=== PATIENT | female | born 1960 | race African-American/Black ===

== ENCOUNTER 2018-06-26 02:50 | Emergency (ER) | payer SELFPAY ==
[~2018-06-26] VITALS: Ht 167.6 cm; Wt 93.2 kg
[2018-06-26] MEDS ORDERED: ACETAMINOPHEN 325MG TABLET PO STA (03:30)
[2018-06-26 03:49] LABS: CLARITY URINE CLOUDY (CLEAR); COLOR URINE YELLOW (YELLOW); KETONES URINE NEGATIVE (NEGATIVE); LEUKOCYTE ESTERASE URINE NEGATIVE (NEGATIVE); NITRITE URINE NEGATIVE (NEGATIVE); OCCULT BLOOD URINE NEGATIVE (NEGATIVE); PROTEIN URINE TRACE (NEGATIVE); SPECIFIC GRAVITY URINE 1.018 (1.005-1.030)
[2018-06-26 04:32] LABS: *BENZODIAZEPINES SCREEN URINE NEGATIVE (NEGATIVE); *COCAINE SCREEN URINE NEGATIVE (NEGATIVE); METHADONE URINE SCREEN NEGATIVE (NEGATIVE); OPIATES URINE SCREEN NEGATIVE (NEGATIVE)
[2018-06-26 04:33] LABS: *AMPHETAMINES SCREEN URINE NEGATIVE (NEGATIVE); *BARBITURATES SCREEN URINE NEGATIVE (NEGATIVE); CANNABINOID URINE SCREEN NEGATIVE (NEGATIVE); PHENCYCLIDINE URINE SCREEN NEGATIVE (NEGATIVE)
[2018-06-26 04:40] LABS: BASOPHILS % 0.6 % (0.0-2.0); HEMOGLOBIN. 12.7 g/dL (12.0-16.0); LYMPHOCYTES % 10.4 % (20.0-50.0); MEAN CORPUSCULAR HEMOGLOBIN 27.9 pg (28.0-32.0); MEAN CORPUSCULAR VOLUME 85.7 fL (81.0-99.0); MEAN PLATELET VOLUME 8.3 fl (7.4-10.4); PLATELET 299 x1000/uL (130-400); RED BLOOD CELL COUNT 4.55 mill/uL (4.2-5.4); RED CELL DISTRIBUTION WIDTH 14.1 % (11.6-14.6)
[2018-06-26 04:44] LABS: CHLORIDE 99 mEq/L (98-107)
[2018-06-26 04:45] LABS: PARTIAL THROMBOPLASTIN TIME 33.2 sec (23.4-31.0)
[2018-06-26 04:49] LABS: ETHANOL BLOOD < 10 mg/dL
[2018-06-26] MEDS ORDERED: CEFTRIAXONE 1 G PREMIX 50 ML IV SCH (05:15)
[2018-06-26] MEDS ORDERED: AZITHROMYCIN 500 MG in DEXT 5% WATER 250 ML IV SCH (05:30)
[2018-06-26] MEDS ORDERED: KETOROLAC 60MG/2ML VIAL IM ONE (09:45)
[2018-06-26 10:15] VITALS: BP 124/66
== END 2018-06-26 10:21 | disposition home or self-care (01) ==
LOC: ER 02:50 → CANBEDREQ 16:00
DX: J18.9 Pneumonia, unspecified organism (principal); K52.9 Noninfective gastroenteritis and colitis, unspecified; I10 Essential (primary) hypertension; E11.9 Type 2 diabetes mellitus without complications; E78.00 Pure hypercholesterolemia, unspecified; G40.909 Epilepsy, unspecified, not intractable, without status epilepticus
CPT/HCPCS: 36415; 71045; 74176; 80053; 80305; 81003; 83605; 83690; 84145; 85025; 85610; 85730; 87040; 87086; 93005; 96365; 96367; 96372; 99284; G0482; J0456; J0696; J1885; J7060